=== PATIENT | female | born 1935 | race Hispanic/Latino ===

== ENCOUNTER 2018-07-07 07:10 | Day surgery (SDC) | payer MEDICARE ==
[2018-07-07 09:01] LABS: Basophils # (Auto) 0.1 K/mm3 (0.0-0.1); Basophils % (Auto) 1.1 % (0.0-1.8); Eosinophils # (Auto) 0.2 K/mm3 (0.0-0.4); Eosinophils % (Auto) 3.4 % (0.0-4.3); Hematocrit 36.7 % (30.3-42.9); Hemoglobin 12.4 gm/dl (10.1-14.3); Lymphocytes % (Auto) 32.1 % (13.4-35.0); Mean Corpuscular HGB Conc 34 % (30-34); Mean Corpuscular Volume 92 fl (79-97); Monocytes # (Auto) 0.6 K/mm3 (0.0-0.8); Monocytes % (Auto) 9.7 % (0.0-7.3); Platelet Count 253 K/mm3 (140-440); Red Cell Distribution Width 13.6 % (13.2-15.2)
[2018-07-07 09:11] LABS: INR 0.94 (0.87-1.13); Partial Thromboplastin Time 28.5 Sec. (24.2-36.6)
[2018-07-07 09:20] LABS: BUN/Creatinine Ratio 21; Blood Urea Nitrogen 17 mg/dL (7-17); Calcium 8.8 mg/dL (8.4-10.2); Hemolysis Index 46
[2018-07-07] MEDS ORDERED: NACL 0.9% 500 ML 500 ML ONE (09:57)
[2018-07-07] MEDS ORDERED: HEPARIN 10,000 UNITS/10 ML ONE (09:57)
[2018-07-07] MEDS ORDERED: HEPARIN/NS 5000 UNIT/500ML(CATH LAB) 1,000 ML IR ONE (09:57)
[2018-07-07] MEDS ORDERED: NACL 0.9% 500 ML 500 ML IV SCH (10:00)
[2018-07-07] MEDS: SUBLIMAZE ONE ×3 (10:33→11:01)
[2018-07-07] MEDS: VERSED ONE ×3 (10:33→11:01)
[2018-07-07] MEDS: XYLOCAINE 2% INFILTRATI ONE ×2 (10:35→10:37)
[2018-07-07] MEDS ORDERED: TORADOL ONE (10:55)
--- NOTE | 2018-07-07 11:18 | Short Stay Summary ---
Short Stay Documentation Date of service: 07/07/18 - History Principal diagnosis: Compression of veins/venous hypertension Past Medical History: other (venous hypertension) Past Surgical History: Other (EVLT) Social history: no significant social history, , lives with family - Allergies and Medications Current Medications: Allergies No Known Allergies Allergy (Verified 07/07/18 08:28) Home Medications Medication Instructions Recorded Confirmed Last Taken Type Venlafaxine HCl [Venlafaxine HCl 150 mg PO DAILY 07/07/18 07/07/18 07/06/18 Hist ory ER] 150mg Active Medications Sodium Chloride (Nacl 0.9% 500 Ml) 500 mls @ 50 mls/hr IV DIRECT LATONYA Last Admin: 07/07/18 09:44 Dose: 50 mls/hr Documented by: - Physical exam General appearance: no acute distress Integumentary: no rash HEENT: Atraumatic, EOMI Lungs: Normal air movement Breasts: deferred Heart: Regular rate Gastrointestinal: normal Female Genitourinary: deferred Rectal Exam: deferred Neurological: Normal gait, Normal speech - Brief post op/procedure progress note Date of procedure: 07/07/18 Pre-op diagnosis: Compression of veins/venous hypertension Post-op diagnosis: same Procedure: BLE venogram, IVUS, stent Anesthesia: local Surgeon: FRANCISCO JAVIER MERIDA Estimated blood loss: minimal Pathology: none - Disposition Condition at discharge: Good Disposition: [id number] TO HOME OR SELFCARE Short Stay Discharge Plan Activity: advance as tolerated Weight Bearing Status: Weight Bear as Tolerated Diet: regular Wound: keep clean and dry, per your surgeon's advice Follow up with: FRANCISCO JAVIER MERIDA MD [Staff Physician] - 7 Days
--- NOTE | 2018-07-07 11:31 | Operative Report ---
Operative Report Operative Report: Exam: Bilateral lower extremity venogram, intravascular ultrasound, venoplasty with stent placement Clinical indication: Patient with a history of venous hypertension, abdominal and lower extremity pain and ultrasound evidence of venous compression of her iliac veins by the overlying arteries Date: 07/07/2018 Procedure: Following an explanation of the risks, benefits and alternatives; written informed consent was obtained. The patient was brought to the angiographic suite and placed in supine position on the examination table. Initial ultrasound evaluation of her legs demonstrated patent proximal femoral veins bilaterally. The patient's legs and groin were prepped and draped in the usual sterile fashion. 1% lidocaine was used for anesthesia. Under ultrasound guidance, the right proximal femoral vein was cannulated with a 7 cm 18-gauge needle. A 0.035 guidewire was advanced centrally. The needle was removed and a 5 [place] sheath placement. Access to the left proximal femoral vein was obtained in a similar fashion and a second 5 [place] sheath placed in the proximal left femoral vein. Diagnostic venography was performed through both sheaths simultaneously. This demonstrates significant compression of the left common iliac vein, and proximal bilateral external iliac veins. The sheaths were upsized over the guidewires to 10 mexican sheaths. Intravascular ultrasound was then performed first from the right over the guidewire from the IVC into the sheath insertion site and then from the left from the IVC into the sheath insertion site. Image vessels include the IVC, right common iliac vein, right external iliac vein, right common femoral vein, left common iliac vein, left external iliac vein and left common femoral vein. There is 80% stenosis involving the left common iliac vein at its origin. There is a separate 60% stenosis involving the left external iliac vein proximally. There is a 60-70% stenosis involving the proximal right external iliac vein. 16 x 90 mm wall stents were then advanced over the guidewire through both sheaths simultaneously. The sheaths were deployed in the external iliac veins bilaterally and seated using 14 mm balloons. 2 additional 16 x 90 mm wall stents were then advanced over the guidewire and deployed to extend from the IVC to overlap the stents in the external iliac veins. The stents were also seated using 14 mm balloons in kissing fashion to cover all 3 lesions. Posttreatment imaging was obtained following contrast injection to bilateral sheets which demonstrate widely patent common iliac veins and external iliac veins bilaterally. The sheaths were removed and hemostasis achieved using manual compression. Compression dressings were then applied. The patient tolerated the procedure well. There were no immediate post procedure complications. Conscious sedation was performed under the guidance of radiologic nursing. Continuous cardiopulmonary monitoring is less. Impression: 1) Bilateral lower extremity venogram demonstrating compression of the left common iliac vein, and bilateral external iliac veins. 2) Intravascular ultrasound performed to the IVC, right common iliac vein, right external iliac vein, right common femoral vein, left common iliac vein, left external iliac vein and left common femoral vein demonstrating 80% stenosis of the left common iliac vein, 60% stenosis involving the left external iliac vein as a separate lesion, 60-70% stenosis involving the right external iliac vein. 3) Treatment of these lesions with venoplasty and stent placement as described with residual 0% stenosis and brisk flow throughout the pelvic venous system.
[2018-07-07 20:34] VITALS: BP 107/44
== END 2018-07-07 12:15 | disposition home or self-care (01) ==
LOC: CATHLABREC 07:10
PROVIDERS: ATTEND Radiology Diagnostic Radiology
DX: I87.1 Compression of vein (principal); I87.303 Chronic venous hypertension (idiopathic) without complications of bilateral lower extremity; F41.9 Anxiety disorder, unspecified; H40.9 Unspecified glaucoma; I25.10 Atherosclerotic heart disease of native coronary artery without angina pectoris; G47.30 Sleep apnea, unspecified; M19.90 Unspecified osteoarthritis, unspecified site; F32.9 Major depressive disorder, single episode, unspecified; Z98.890 Other specified postprocedural states; Z79.01 Long term (current) use of anticoagulants; Z79.899 Other long term (current) drug therapy; Z98.49 Cataract extraction status, unspecified eye; Z95.5 Presence of coronary angioplasty implant and graft; Z85.3 Personal history of malignant neoplasm of breast; Z90.710 Acquired absence of both cervix and uterus; Z87.442 Personal history of urinary calculi; Z96.651 Presence of right artificial knee joint; Z86.73 Personal history of transient ischemic attack (TIA), and cerebral infarction without residual deficits
CPT/HCPCS: 36415; 37238; 37239; 37252; 37253; 75822; 76937; 80048; 85025; 85610; 85730; 99156; 99157; C1725; C1753; C1769; C1876; C1894; J1644; J1885; J2250; J3010; J7040; Q9967